=== PATIENT | female | born 1950 | race Caucasian/White ===

== ENCOUNTER → 2016-09-08 | Outpatient (CLI) | payer OTHER ==
[~2016-09-08] MED LIST: AMARYL2 MG PO; AMLODIPINE BESYL5 MG PO; ASPIRIN EC81 M1 PO; COZAAR100 MG PO; MONODOX100 MG PO; OMEPRAZOLE20 M2 PO; SARAFEM20 MG PO; VITAMIN D2000 UNIT PO
--- NOTE | ~2016-09-08 | US24 ---
[facility] A Service of [facility] RADIOLOGY TEXT RESULTS PATIENT: OLGA RODRIGUEZ LOCATION: [facility] : 48 UNIT #: [id number] AGE: [address]: APOLLO ALVARADO SEX: F ORDER DR: [id number] [facility] [address] [place], [place] [address] [id number] O MR#: [id number] Acc #: [id number] NAME: OLGA RODRIGUEZ : 1950 SEX: F STUDY DATE/TIME: 09/08/2016 10:04 UNIT: [facility] ROOM: STUDY DESCRIPTION: US Breast Unilateral Attending Physician: Apollo Alvarado M.D. Referring Physician: Apollo Alvarado M.D. Primary Care Physician: Apollo Alvarado M.D. MEDICAL IMAGING REPORT This report is preliminary unless electronic signature is present EXAM Left breast ultrasound 09/08 INDICATIONS Outside mammogram demonstrating enlarging left subareolar nodule. Patient presents for further evaluation. FINDINGS Sonographic evaluation is performed of the subareolar left breast. Comparison made with prior mammograms from 08/21/2016 and 02/12/2015. Ultrasound demonstrates a small simple cyst in the subareolar breast corresponding to mammographic abnormality. By ultrasound, it measures up to 9 mm in greatest dimension. No solid nodules are identified. These findings were discussed with the patient at the time of her examination today. IMPRESSION Small benign cyst in the left subareolar breast corresponding to the mammographic abnormality. Routine yearly mammographic screening is recommended. BIRADS II. BIRADS: 2 - Benign finding Dictated by... Jeremiah Vazquez Jr., M.D. THIS IS AN ELECTRONICALLY VERIFIED REPORT Jeremiah Vazquez Jr., M.D. at 09/08/2016 5:27 PM [facility] TD: 09/08/2016 16:12 JOB #: [id number] [facility] A Service of [facility] RADIOLOGY TEXT RESULTS PATIENT: OLGA RODRIGUEZ LOCATION: [facility] : 48 UNIT #: [id number] AGE: [address]: APOLLO ALVARADO SEX: F ORDER DR: MEDICAL IMAGING REPORT Page 1 of 1 COPY
== END | disposition home or self-care (01) ==
LOC: CMAM 09:23
DX: N63 Unspecified lump in breast (principal); N60.02 Solitary cyst of left breast
CPT/HCPCS: 76641